=== PATIENT | male | born 1965 | race African-American/Black ===

== ENCOUNTER 2018-11-23 10:00 | Inpatient (IN) | payer MEDICAID, OTHER ==
[~2018-11-23] VITALS: Ht 177.8 cm; Wt 119.3 kg
[2018-11-23] MEDS ORDERED: KEPP250 PO (10:13)
[2018-11-23] MEDS ORDERED: SODIUM CHLORIDE 0.9% 1,000 ML IV ONE (10:23)
[2018-11-23] MEDS ORDERED: MORPHINE SULFATE 4 MG/ML CPJ (NOT FOR IM USE) IV STA (10:23)
[2018-11-23] MEDS ORDERED: ONDANSETRON HCL 4MG/2ML INJ IV STA (10:23)
[2018-11-23] MEDS ORDERED: ONDANSETRON HCL 4MG/2ML INJ IV ONE (10:30)
[2018-11-23] MEDS ORDERED: MORPHINE SULFATE 4 MG/ML CPJ (NOT FOR IM USE) IV ONE (10:30)
[2018-11-23] MEDS ORDERED: TOPA200 MT (10:34)
[2018-11-23] MEDS ORDERED: GABA-529 MT (10:34)
[2018-11-23] MEDS ORDERED: PREG150C PO (10:34)
[2018-11-23 11:29] LABS: BASOPHILS % 0.7 % (0.0-2.0); EOSINOPHILS % 3.6 % (0.0-5.0); HEMATOCRIT. 40.3 % (42.0-52.0); HEMOGLOBIN. 13.9 g/dL (14.0-18.0); LYMPHOCYTES % 23.3 % (20.0-50.0); MEAN CORPUSCULAR HEMOGLOBIN 29.8 pg (28.0-32.0); MEAN CORPUSCULAR VOLUME 86.6 fL (80.0-94.0); MEAN PLATELET VOLUME 8.2 fl (7.4-10.4); NEUTROPHILS % 67.4 % (40.0-76.0); PLATELET 200 x1000/uL (130-400); RED BLOOD CELL COUNT 4.65 mill/uL (4.7-6.1)
[2018-11-23 11:37] LABS: PROTHROMBIN TIME 9.8 sec (9.6-11.0)
[2018-11-23 12:12] LABS: CLARITY URINE CLEAR (CLEAR); COLOR URINE YELLOW (YELLOW); KETONES URINE NEGATIVE (NEGATIVE); LEUKOCYTE ESTERASE URINE NEGATIVE (NEGATIVE); NITRITE URINE NEGATIVE (NEGATIVE); OCCULT BLOOD URINE NEGATIVE (NEGATIVE); PH URINE 5.5 (4.5-8.0); PROTEIN URINE NEGATIVE (NEGATIVE); SPECIFIC GRAVITY URINE 1.039 (1.005-1.030); UROBILINOGEN URINE 0.2 E.U./dL (0.2-1.0)
[2018-11-23 12:20] LABS: CHLORIDE 103 mEq/L (98-107)
[2018-11-23 12:26] LABS: ETHANOL BLOOD < 10 mg/dL
[2018-11-23 12:27] LABS: BETA HYDROXYBUTYRATE 0.2 mMol/L (0.0-0.3)
[2018-11-23 12:41] LABS: *AMPHETAMINES SCREEN URINE NEGATIVE (NEGATIVE); *BARBITURATES SCREEN URINE NEGATIVE (NEGATIVE); *BENZODIAZEPINES SCREEN URINE NEGATIVE (NEGATIVE)
[2018-11-23 12:42] LABS: *COCAINE SCREEN URINE NEGATIVE (NEGATIVE); CANNABINOID URINE SCREEN NEGATIVE (NEGATIVE); METHADONE URINE SCREEN NEGATIVE (NEGATIVE); OPIATES URINE SCREEN NEGATIVE (NEGATIVE); PHENCYCLIDINE URINE SCREEN NEGATIVE (NEGATIVE)
[2018-11-23] MEDS ORDERED: ENALAPRIL 2.5MG/2ML VIAL 2ML IV ONE (13:00)
[2018-11-23] MEDS ORDERED: INSULIN REGULAR (HUMULIN R) 300UNITS/3ML IV ONE (13:00)
[2018-11-23] MEDS ORDERED: ENALAPRIL 1.25MG/ML VIAL 1ML IV SCH (13:45)
[2018-11-23 16:00] VITALS: BP_SYST 133; BP_SYST 137; BP_DIAS 102; BP_DIAS 89
[2018-11-23] MEDS ORDERED: ONDANSETRON HCL 4MG/2ML INJ IV PRN (16:30)
[2018-11-23] MEDS ORDERED: ENOXAPARIN 40MG/0.4ML SYR SUBCUT SCH (16:30)
[2018-11-23] MEDS ORDERED: IPRATROPIUM/ALBUTEROL 0.5-3(2.5)MG/3ML NEB INH PRN (16:30)
[2018-11-23] MEDS ORDERED: CLONIDINE 0.1MG TABLET PO PRN (16:30)
[2018-11-23] MEDS ORDERED: DEXTROSE 50% WATER 50ML SYRINGE IV PRN (16:30)
[2018-11-23] MEDS ORDERED: DOCUSATE SODIUM 100MG CAPSULE PO PRN (16:30)
[2018-11-23] MEDS ORDERED: NITROGLYCERIN 0.4MG TABLET SL SL PRN (16:30)
[2018-11-23] MEDS ORDERED: LORAZEPAM 2MG/ML CPJ IV PRN (16:30)
[2018-11-23] MEDS ORDERED: GUAIFENESIN 200MG/10ML SUGAR FREE UDC PO PRN (16:30)
[2018-11-23] MEDS ORDERED: MAGNESIUM/ALUMINUM HYDROXIDE/SIMETHICONE 30ML UDC PO PRN (16:30)
[2018-11-23] MEDS: ACETAMINOPHEN 325MG TABLET PO PRN ×2 (16:54→21:54)
[2018-11-23 17:18] VITALS: BP 137/89
[2018-11-23] MEDS: BLOOD SUGAR DIAGNOSTIC STRIP TEST SCH ×2 (17:40→21:56)
[2018-11-23] MEDS: INSULIN LISPRO 100 UNITS/ML SUBCUT SCH ×2 (18:10→21:56)
[2018-11-23 20:00] VITALS: BP 138/88
[2018-11-23] MEDS ORDERED: ZOLPIDEM TARTRATE 5MG TABLET PO PRN (21:00)
[2018-11-23] MEDS ORDERED: LEVETIRACETAM 500MG TABLET PO SCH (21:00)
[2018-11-23] MEDS: GABAPENTIN 300MG CAPSULE PO SCH (21:52)
[2018-11-23] MEDS: TOPIRAMATE 100MG TABLET PO SCH (21:52)
[2018-11-23] MEDS: LISINOPRIL 20MG TABLET PO SCH (21:53)
[2018-11-23] MEDS: FAMOTIDINE 20MG TABLET PO SCH (21:53)
[2018-11-23] MEDS: ENOXAPARIN 30MG/0.3ML SYR SUBCUT SCH (21:53)
[2018-11-23] MEDS: METOPROLOL TARTRATE 25MG TABLET PO SCH (21:53)
[2018-11-23] MEDS ORDERED: INSULIN GLARGINE UD 100 UNITS/ML SYR SUBCUT SCH (22:00)
[2018-11-23] MEDS ORDERED: DIPHENHYDRAMINE 25MG CAPSULE PO PRN (22:45)
[2018-11-24] VITALS: BP 130/82
[2018-11-24 04:00] VITALS: BP 152/98
[2018-11-24] MEDS: BLOOD SUGAR DIAGNOSTIC STRIP TEST SCH (05:38)
[2018-11-24] MEDS: GABAPENTIN 300MG CAPSULE PO SCH (05:38)
[2018-11-24 08:00] VITALS: BP 134/97
[2018-11-24] MEDS: METOPROLOL TARTRATE 25MG TABLET PO SCH (08:47)
[2018-11-24] MEDS: FAMOTIDINE 20MG TABLET PO SCH (08:47)
[2018-11-24] MEDS: LISINOPRIL 20MG TABLET PO SCH (08:47)
[2018-11-24] MEDS: TOPIRAMATE 100MG TABLET PO SCH (08:47)
[2018-11-24] MEDS: INSULIN LISPRO 100 UNITS/ML SUBCUT SCH (08:51)
[2018-11-24] MEDS: ENOXAPARIN 30MG/0.3ML SYR SUBCUT SCH (08:55)
[2018-11-26 13:09] LABS: TOPIRAMATE None Detected ug/mL (2.0-25.0)
== END 2018-11-24 12:15 | disposition home or self-care (01) | DRG 347 ==
LOC: ER 10:00 → 7WST 12:18 → EDBEDREQ 12:32 → ENRESERV 13:41 → 7WST 20:12
PROVIDERS: ADMIT Internal Medicine; ATTEND Internal Medicine
DX: M54.2 Cervicalgia (principal); E11.65 Type 2 diabetes mellitus with hyperglycemia; G89.29 Other chronic pain; E44.1 Mild protein-calorie malnutrition; E83.51 Hypocalcemia; I10 Essential (primary) hypertension; Z76.5 Malingerer [conscious simulation]; Z88.8 Allergy status to other drugs, medicaments and biological substances; Z79.899 Other long term (current) drug therapy; Z68.37 Body mass index [BMI] 37.0-37.9, adult
CPT/HCPCS: 36415; 80201; 80305; 80320; 82010; 82962; 83880; 84484; 93005; 93970; 96374; 99285; J1650; J1815; J2060; J2270; J2405; J3490; J7030; Q0163; G0480

== ENCOUNTER 2019-01-01 06:49 | Emergency (ER) | payer MEDICAID ==
[~2019-01-01] VITALS: Ht 193 cm; Wt 116.0 kg
[~2019-01-01 06:49] MED LIST: GABA-529 MT; KEPP250 PO; PREG150C PO; TOPA200 MT
[2019-01-01] MEDS ORDERED: METF-416 MT (07:33)
[2019-01-01] MEDS ORDERED: ACETAMINOPHEN 325MG TABLET PO ONE (10:00)
[2019-01-01] MEDS ORDERED: DEXAMETHASONE 4MG/ML 1ML VIAL IM ONE (10:00)
[2019-01-01] MEDS ORDERED: BACLOFEN 10MG TABLET PO ONE (10:00)
[2019-01-01 10:51] VITALS: BP 145/100
== END 2019-01-01 10:53 | disposition home or self-care (01) ==
LOC: ER 06:49
DX: M75.101 Unspecified rotator cuff tear or rupture of right shoulder, not specified as traumatic (principal); M25.511 Pain in right shoulder; E11.9 Type 2 diabetes mellitus without complications; Z79.899 Other long term (current) drug therapy; Z88.6 Allergy status to analgesic agent; Z88.1 Allergy status to other antibiotic agents; Z88.2 Allergy status to sulfonamides
CPT/HCPCS: 96372; 99283; J1100

== ENCOUNTER 2019-01-04 16:53 | Emergency (ER) | payer MEDICAID ==
[~2019-01-04] VITALS: Ht 193 cm; Wt 116.0 kg
[~2019-01-04 16:53] MED LIST changes: -GABA-529 MT; -KEPP250 PO; +METF-416 MT
[2019-01-04 17:02] VITALS: BP 173/118
== END 2019-01-04 22:00 | disposition left against medical advice (07) ==
LOC: ER 16:53
DX: R68.89 Other general symptoms and signs (principal); Z53.21 Procedure and treatment not carried out due to patient leaving prior to being seen by health care provider

== ENCOUNTER 2019-01-04 23:20 | Emergency (ER) | payer MEDICAID ==
[~2019-01-04] VITALS: Ht 193 cm; Wt 114.0 kg
[2019-01-05] MEDS ORDERED: HYDROCODONE/ACETAMINOPHEN 5/325MG TABLET PO ONE (06:30)
[2019-01-05 07:30] VITALS: BP 138/98
== END 2019-01-05 07:45 | disposition home or self-care (01) ==
LOC: ER 23:20
DX: M25.511 Pain in right shoulder (principal); G89.29 Other chronic pain; M75.101 Unspecified rotator cuff tear or rupture of right shoulder, not specified as traumatic; E11.9 Type 2 diabetes mellitus without complications; I10 Essential (primary) hypertension; Z88.6 Allergy status to analgesic agent; Z88.8 Allergy status to other drugs, medicaments and biological substances
CPT/HCPCS: 99283

== ENCOUNTER 2019-01-10 13:09 | Inpatient (IN) | payer MEDICAID ==
[~2019-01-10] VITALS: Ht 193 cm; Wt 112.1 kg
[2019-01-10] MEDS ORDERED: SODIUM CHLORIDE 0.9% 1,000 ML IV ONE (13:49)
[2019-01-10] MEDS ORDERED: MORPHINE SULFATE 4 MG/ML CPJ (NOT FOR IM USE) IV STA (13:49)
[2019-01-10] MEDS ORDERED: TOPIRAMATE 100MG TABLET PO STA (13:49)
[2019-01-10] MEDS ORDERED: ONDANSETRON HCL 4MG/2ML INJ IV STA (13:49)
[2019-01-10] MEDS ORDERED: GABAPENTIN 300MG CAPSULE PO ONE (14:00)
[2019-01-10 14:19] LABS: CLARITY URINE CLEAR (CLEAR); COLOR URINE YELLOW (YELLOW); KETONES URINE NEGATIVE (NEGATIVE); LEUKOCYTE ESTERASE URINE NEGATIVE (NEGATIVE); NITRITE URINE NEGATIVE (NEGATIVE); OCCULT BLOOD URINE NEGATIVE (NEGATIVE); PROTEIN URINE 1+ (NEGATIVE); SPECIFIC GRAVITY URINE 1.042 (1.005-1.030); UROBILINOGEN URINE 0.2 E.U./dL (0.2-1.0)
[2019-01-10 14:31] LABS: *AMPHETAMINES SCREEN URINE NEGATIVE (NEGATIVE)
[2019-01-10 14:32] LABS: *BARBITURATES SCREEN URINE NEGATIVE (NEGATIVE); *BENZODIAZEPINES SCREEN URINE NEGATIVE (NEGATIVE); *COCAINE SCREEN URINE NEGATIVE (NEGATIVE); METHADONE URINE SCREEN NEGATIVE (NEGATIVE); OPIATES URINE SCREEN NEGATIVE (NEGATIVE); PHENCYCLIDINE URINE SCREEN NEGATIVE (NEGATIVE)
[2019-01-10 14:33] LABS: CANNABINOID URINE SCREEN NEGATIVE (NEGATIVE)
[2019-01-10 15:19] LABS: BASOPHILS % 0.9 % (0.0-2.0); EOSINOPHILS % 1.1 % (0.0-5.0); HEMATOCRIT. 46.6 % (42.0-52.0); HEMOGLOBIN. 16.3 g/dL (14.0-18.0); LYMPHOCYTES % 23.7 % (20.0-50.0); MEAN CORPUSCULAR HEMOGLOBIN 29.3 pg (28.0-32.0); MEAN CORPUSCULAR VOLUME 83.9 fL (80.0-94.0); MEAN PLATELET VOLUME 8.4 fl (7.4-10.4); MONOCYTES % 5.9 % (2.0-8.0); NEUTROPHILS % 68.4 % (40.0-76.0); PLATELET 210 x1000/uL (130-400); RED BLOOD CELL COUNT 5.55 mill/uL (4.7-6.1); RED CELL DISTRIBUTION WIDTH 13.7 % (11.6-14.6)
[2019-01-10 15:22] LABS: CHLORIDE 102 mEq/L (98-107)
[2019-01-10 15:26] LABS: ETHANOL BLOOD < 10 mg/dL
[2019-01-10 15:29] LABS: CREATINE KINASE 110 IU/L (39-308)
[2019-01-10] MEDS ORDERED: HYDROCODONE/ACETAMINOPHEN 5/325MG TABLET PO ONE (16:15)
[2019-01-10 18:00] VITALS: BP 137/111
[2019-01-10 18:04] VITALS: BP 137/111
[2019-01-10] MEDS ORDERED: METF-416 PO (18:28)
[2019-01-10] MEDS ORDERED: TOPA200 PO (18:37)
[2019-01-10] MEDS ORDERED: GABA800T PO (18:37)
[2019-01-10] MEDS ORDERED: ACETAMINOPHEN 325MG TABLET PO PRN (18:45)
[2019-01-10] MEDS ORDERED: LORAZEPAM 2MG/ML CPJ IV PRN (18:45)
[2019-01-10] MEDS ORDERED: ONDANSETRON HCL 4MG/2ML INJ IV PRN (18:45)
[2019-01-10] MEDS ORDERED: DEXTROSE 50% WATER 50ML SYRINGE IV PRN (19:00)
[2019-01-10] MEDS: BLOOD SUGAR DIAGNOSTIC STRIP TEST SCH ×2 (19:19→20:38)
[2019-01-10] MEDS: INSULIN LISPRO 100 UNITS/ML SUBCUT SCH ×2 (19:22→20:37)
[2019-01-10 20:00] VITALS: BP 133/80
[2019-01-10] MEDS ORDERED: MAGNESIUM/ALUMINUM HYDROXIDE/SIMETHICONE 30ML UDC PO PRN (20:00)
[2019-01-10] MEDS ORDERED: CLONIDINE 0.1MG TABLET PO PRN (20:00)
[2019-01-10] MEDS ORDERED: DIPHENHYDRAMINE 50MG/ML VIAL IV PRN (20:00)
[2019-01-10] MEDS ORDERED: DOCUSATE SODIUM 100MG CAPSULE PO PRN (20:00)
[2019-01-10] MEDS ORDERED: IPRATROPIUM/ALBUTEROL 0.5-3(2.5)MG/3ML NEB HHN PRN (20:00)
[2019-01-10] MEDS ORDERED: GUAIFENESIN 200MG/10ML SUGAR FREE UDC PO PRN (20:00)
[2019-01-10 20:42] LABS: PHOSPHORUS 3.8 mg/dL (2.5-4.9)
[2019-01-10] MEDS ORDERED: BLOOD SUGAR DIAGNOSTIC STRIP TEST SCH (21:00)
[2019-01-10] MEDS: ENOXAPARIN 30MG/0.3ML SYR SUBCUT SCH (21:00)
[2019-01-10] MEDS ORDERED: INSULIN LISPRO 100 UNITS/ML SUBCUT SCH (21:00)
[2019-01-10] MEDS: HYDROMORPHONE HCL/PF 2MG/ML CPJ IV PRN (21:09)
[2019-01-11] VITALS: BP 137/89
[2019-01-11] MEDS: HYDROMORPHONE HCL/PF 2MG/ML CPJ IV PRN ×5 (01:27→21:41)
[2019-01-11 04:00] VITALS: BP_SYST 128; BP_SYST 137; BP_DIAS 87; BP_DIAS 89
[2019-01-11] MEDS: BLOOD SUGAR DIAGNOSTIC STRIP TEST SCH ×4 (06:01→20:56)
[2019-01-11 07:22] LABS: BASOPHILS % 0.6 % (0.0-2.0); EOSINOPHILS % 2.2 % (0.0-5.0); HEMATOCRIT. 45.5 % (42.0-52.0); HEMOGLOBIN. 15.6 g/dL (14.0-18.0); LYMPHOCYTES % 33.2 % (20.0-50.0); MEAN CORPUSCULAR VOLUME 84.9 fL (80.0-94.0); MEAN PLATELET VOLUME 8.4 fl (7.4-10.4); MONOCYTES % 7.3 % (2.0-8.0); NEUTROPHILS % 56.7 % (40.0-76.0); PLATELET 207 x1000/uL (130-400); RED BLOOD CELL COUNT 5.36 mill/uL (4.7-6.1); RED CELL DISTRIBUTION WIDTH 13.3 % (11.6-14.6)
[2019-01-11] MEDS: INSULIN LISPRO 100 UNITS/ML SUBCUT SCH ×4 (07:50→21:43)
[2019-01-11] MEDS: METFORMIN HCL 500MG TABLET PO SCH (07:56)
[2019-01-11] MEDS: ENOXAPARIN 30MG/0.3ML SYR SUBCUT SCH (07:56)
[2019-01-11] MEDS: GABAPENTIN 400MG CAPSULE PO SCH (07:57)
[2019-01-11 08:00] VITALS: BP 130/90
[2019-01-11] MEDS ORDERED: TOPIRAMATE 100MG TABLET PO SCH (09:00)
[2019-01-11 10:07] LABS: CHLORIDE 104 mEq/L (98-107)
[2019-01-11 10:33] LABS: HDL CHOLESTEROL 31 mg/dL (40-59)
[2019-01-11 10:34] LABS: LDL CHOLESTEROL 74 mg/dL (5-100)
[2019-01-11] MEDS: TOPIRAMATE 100MG TABLET PO SCH ×2 (10:37→16:40)
[2019-01-11] MEDS: ZONISAMIDE 100MG CAPSULE PO SCH (10:37)
[2019-01-11] MEDS ORDERED: INSULIN LISPRO 100 UNITS/ML SUBCUT SCH (11:40)
[2019-01-11 12:00] VITALS: BP 130/80
[2019-01-11 16:00] VITALS: BP 146/90
[2019-01-11] MEDS: CYCLOBENZAPRINE 10MG TABLET PO SCH ×2 (16:40→21:42)
[2019-01-11 20:00] VITALS: BP 129/86
[2019-01-11] MEDS ORDERED: INSULIN GLARGINE UD 100 UNITS/ML SYR SUBCUT SCH (22:00)
[2019-01-12] VITALS: BP 118/81
[2019-01-12] MEDS: HYDROMORPHONE HCL/PF 2MG/ML CPJ IV PRN ×6 (01:58→23:33)
[2019-01-12 04:00] VITALS: BP 139/89
[2019-01-12] MEDS: CYCLOBENZAPRINE 10MG TABLET PO SCH ×3 (06:04→21:31)
[2019-01-12] MEDS: BLOOD SUGAR DIAGNOSTIC STRIP TEST SCH ×4 (06:20→21:31)
[2019-01-12 08:00] VITALS: BP 114/82
[2019-01-12] MEDS: METFORMIN HCL 500MG TABLET PO SCH ×2 (08:46→18:41)
[2019-01-12] MEDS: GABAPENTIN 400MG CAPSULE PO SCH (08:47)
[2019-01-12] MEDS: ZONISAMIDE 100MG CAPSULE PO SCH (08:47)
[2019-01-12] MEDS: TOPIRAMATE 100MG TABLET PO SCH ×2 (08:47→18:41)
[2019-01-12] MEDS: ENOXAPARIN 30MG/0.3ML SYR SUBCUT SCH ×2 (08:47→21:31)
[2019-01-12] MEDS: INSULIN LISPRO 100 UNITS/ML SUBCUT SCH ×5 (08:55→21:32)
[2019-01-12] MEDS ORDERED: INSULIN GLARGINE UD 100 UNITS/ML SYR SUBCUT SCH (10:00)
[2019-01-12 12:00] VITALS: BP 110/82
[2019-01-12 16:00] VITALS: BP 104/79
[2019-01-12 20:28] VITALS: BP 105/72
[2019-01-12] MEDS ORDERED: ATORVASTATIN CALCIUM 20MG TABLET PO SCH (21:00)
[2019-01-12] MEDS: INSULIN GLARGINE UD 100 UNITS/ML SYR SUBCUT SCH (21:33)
[2019-01-13 00:24] VITALS: BP 114/77
[2019-01-13 04:42] VITALS: BP 110/76
[2019-01-13] MEDS: CYCLOBENZAPRINE 10MG TABLET PO SCH ×3 (05:11→22:12)
[2019-01-13] MEDS: HYDROMORPHONE HCL/PF 2MG/ML CPJ IV PRN ×5 (05:27→22:11)
[2019-01-13] MEDS: BLOOD SUGAR DIAGNOSTIC STRIP TEST SCH ×4 (06:39→21:00)
[2019-01-13 08:00] VITALS: BP 110/77
[2019-01-13] MEDS: METFORMIN HCL 500MG TABLET PO SCH ×2 (08:30→17:39)
[2019-01-13] MEDS: GABAPENTIN 400MG CAPSULE PO SCH (08:30)
[2019-01-13] MEDS: ENOXAPARIN 30MG/0.3ML SYR SUBCUT SCH ×2 (08:31→22:12)
[2019-01-13] MEDS: INSULIN LISPRO 100 UNITS/ML SUBCUT SCH ×7 (08:32→22:15)
[2019-01-13] MEDS: ZONISAMIDE 100MG CAPSULE PO SCH (08:37)
[2019-01-13] MEDS: TOPIRAMATE 100MG TABLET PO SCH ×2 (09:33→17:33)
[2019-01-13] MEDS: INSULIN GLARGINE UD 100 UNITS/ML SYR SUBCUT SCH ×2 (09:34→22:15)
[2019-01-13 11:47] VITALS: BP 110/81
[2019-01-13 16:00] VITALS: BP 100/68
[2019-01-13] MEDS ORDERED: HYDROCODONE/APAP 7.5/325MG 1 TAB TABLET PO PRN (18:30)
[2019-01-13 20:13] VITALS: BP 94/59
[2019-01-14 00:44] VITALS: BP 105/75
[2019-01-14] MEDS: HYDROMORPHONE HCL/PF 2MG/ML CPJ IV PRN ×3 (02:36→11:00)
[2019-01-14 04:00] VITALS: BP 106/80
[2019-01-14] MEDS: CYCLOBENZAPRINE 10MG TABLET PO SCH ×2 (05:25→13:38)
[2019-01-14] MEDS: BLOOD SUGAR DIAGNOSTIC STRIP TEST SCH ×2 (06:44→12:40)
[2019-01-14] MEDS: INSULIN LISPRO 100 UNITS/ML SUBCUT SCH ×4 (07:20→12:44)
[2019-01-14] MEDS ORDERED: GEMFIBROZIL 600MG TABLET PO SCH (07:50)
[2019-01-14 08:00] VITALS: BP 114/79
[2019-01-14] MEDS: ZONISAMIDE 100MG CAPSULE PO SCH (08:12)
[2019-01-14] MEDS: METFORMIN HCL 500MG TABLET PO SCH (08:12)
[2019-01-14] MEDS: ENOXAPARIN 30MG/0.3ML SYR SUBCUT SCH ×2 (08:13→08:28)
[2019-01-14] MEDS: TOPIRAMATE 100MG TABLET PO SCH (08:13)
[2019-01-14] MEDS: GABAPENTIN 400MG CAPSULE PO SCH (08:13)
[2019-01-14] MEDS: INSULIN GLARGINE UD 100 UNITS/ML SYR SUBCUT SCH (10:03)
[2019-01-14 12:00] VITALS: BP 109/69
[2019-01-14 14:03] VITALS: BP 109/69
== END 2019-01-14 15:20 | disposition home or self-care (01) | DRG 53 ==
LOC: ER 13:09 → 6WST 15:08 → EDBEDREQ 15:18 → ENRESERV 16:03 → 6WST 17:51
PROVIDERS: ADMIT Internal Medicine; ATTEND Internal Medicine
PROC: 4A00X4Z Measurement of Central Nervous Electrical Activity, External Approach (ICD-10-PCS; principal; 2019-01-10)
DX: G40.909 Epilepsy, unspecified, not intractable, without status epilepticus (principal); E11.65 Type 2 diabetes mellitus with hyperglycemia; M25.511 Pain in right shoulder; M75.101 Unspecified rotator cuff tear or rupture of right shoulder, not specified as traumatic; W18.2XXA Fall in (into) shower or empty bathtub, initial encounter; Z88.9 Allergy status to unspecified drugs, medicaments and biological substances; G89.29 Other chronic pain; Y93.E1 Activity, personal bathing and showering; Z79.84 Long term (current) use of oral hypoglycemic drugs
CPT/HCPCS: 36415; 70551; 71045; 73030; 73221; 80061; 80305; 80320; 81003; 82550; 82962; 83036; 83735; 84100; 84443; 93306; 93880; 96374; 97162; 97166; 99285; J1170; J1650; J1815; J2270; J2405; J7030; G0480

== ENCOUNTER 2019-02-13 10:25 | Emergency (ER) | payer MEDICAID ==
[~2019-02-13] VITALS: Ht 193 cm; Wt 109.0 kg
[~2019-02-13 10:25] MED LIST changes: +GABA800T PO; -METF-416 MT; +METF-416 PO; -PREG150C PO; -TOPA200 MT; +TOPA200 PO
[2019-02-13] MEDS ORDERED: ACETAMINOPHEN 325MG TABLET PO STA (10:50)
[2019-02-13] MEDS ORDERED: MORPHINE SULFATE 4 MG/ML CPJ (NOT FOR IM USE) IV ONE ×2 (11:00→11:45)
[2019-02-13 12:55] VITALS: BP 160/110
== END 2019-02-13 12:59 | disposition home or self-care (01) ==
LOC: ER 10:25
DX: G89.29 Other chronic pain (principal); M25.511 Pain in right shoulder; F19.10 Other psychoactive substance abuse, uncomplicated; E11.9 Type 2 diabetes mellitus without complications; R56.9 Unspecified convulsions; Z88.6 Allergy status to analgesic agent; Z88.8 Allergy status to other drugs, medicaments and biological substances; Z98.890 Other specified postprocedural states
CPT/HCPCS: 73030; 96374; 96376; 99283; J2270; A4565

== ENCOUNTER 2019-05-15 14:23 | Emergency (ER) | payer MEDICAID ==
[~2019-05-15] VITALS: Ht 193 cm; Wt 110.0 kg
[2019-05-15] MEDS ORDERED: PIPERACILLIN/TAZ 3.375G PREMIX 50 ML IV ONE (20:15)
[2019-05-15] MEDS ORDERED: VANCOMYCIN 1 G PREMIX 200 ML IV SCH (20:15)
[2019-05-15 21:18] LABS: CHLORIDE 98 mEq/L (98-107)
[2019-05-15 21:26] LABS: EOSINOPHILS % 2.2 % (0.0-5.0); HEMATOCRIT. 47.4 % (42.0-52.0); HEMOGLOBIN. 16.3 g/dL (14.0-18.0); LYMPHOCYTES % 29.2 % (20.0-50.0); MEAN CORPUSCULAR HEMOGLOBIN 29.9 pg (28.0-32.0); MEAN CORPUSCULAR VOLUME 86.8 fL (80.0-94.0); MEAN PLATELET VOLUME 8.9 fl (7.4-10.4); MONOCYTES % 5.8 % (2.0-8.0); NEUTROPHILS % 61.8 % (40.0-76.0); PLATELET 224 x1000/uL (130-400); RED BLOOD CELL COUNT 5.46 mill/uL (4.7-6.1)
[2019-05-15] MEDS ORDERED: HYDROCODONE/APAP 7.5/325MG 1 TAB TABLET PO ONE (22:00)
[2019-05-15 23:04] VITALS: BP 154/89
== END 2019-05-15 23:05 | disposition home or self-care (01) ==
LOC: ER 14:23
DX: E11.621 Type 2 diabetes mellitus with foot ulcer (principal); L97.511 Non-pressure chronic ulcer of other part of right foot limited to breakdown of skin; E11.65 Type 2 diabetes mellitus with hyperglycemia; H00.019 Hordeolum externum unspecified eye, unspecified eyelid; R56.9 Unspecified convulsions; Z88.6 Allergy status to analgesic agent; Z88.8 Allergy status to other drugs, medicaments and biological substances
CPT/HCPCS: 36415; 73630; 80053; 85025; 85651; 87040; 96365; 96368; 96375; 99284; J2543; J3370; Z7610

== ENCOUNTER 2019-06-25 13:28 | Emergency (ER) | payer MEDICAID ==
[~2019-06-25] VITALS: Ht 193 cm; Wt 110.0 kg
[2019-06-25] MEDS ORDERED: ONDANSETRON 4MG ODT PO ONE (16:45)
[2019-06-25] MEDS ORDERED: MORPHINE SULFATE 10 MG/ML CPJ IM ONE (16:45)
[2019-06-25 16:55] VITALS: BP 155/108
== END 2019-06-25 17:13 | disposition home or self-care (01) ==
LOC: ER 13:28
DX: G89.29 Other chronic pain (principal); M25.511 Pain in right shoulder; M54.5 Low back pain; M54.12 Radiculopathy, cervical region; I10 Essential (primary) hypertension; E11.9 Type 2 diabetes mellitus without complications; Z88.1 Allergy status to other antibiotic agents; Z88.2 Allergy status to sulfonamides; Z79.899 Other long term (current) drug therapy
CPT/HCPCS: 96372; 99283; J2270; Q0162

== ENCOUNTER 2019-08-02 10:35 | Emergency (ER) | payer MEDICAID ==
[~2019-08-02] VITALS: Ht 190.5 cm; Wt 109.0 kg
[2019-08-02 11:30] VITALS: BP 161/112
[2019-08-02] MEDS ORDERED: KETOROLAC 30MG/ML VIAL IV STA (12:02)
[2019-08-02] MEDS ORDERED: SODIUM CHLORIDE 0.9% 1,000 ML IV ONE (12:02)
[2019-08-02 12:16] LABS: BASOPHILS % 0.6 % (0.0-2.0); EOSINOPHILS % 1.5 % (0.0-5.0); HEMOGLOBIN. 15.7 g/dL (14.0-18.0); LYMPHOCYTES % 20.7 % (20.0-50.0); MEAN CORPUSCULAR HEMOGLOBIN 29.8 pg (28.0-32.0); MEAN PLATELET VOLUME 8.5 fl (7.4-10.4); MONOCYTES % 5.8 % (2.0-8.0); NEUTROPHILS % 71.4 % (40.0-76.0); PLATELET 181 x1000/uL (130-400); RED BLOOD CELL COUNT 5.28 mill/uL (4.7-6.1); RED CELL DISTRIBUTION WIDTH 13.8 % (11.6-14.6)
[2019-08-02 12:22] LABS: CHLORIDE 96 mEq/L (98-107)
[2019-08-02 12:26] LABS: ETHANOL BLOOD < 10 mg/dL
[2019-08-02] MEDS ORDERED: ACETAMINOPHEN 325MG TABLET PO ONE (13:45)
== END 2019-08-03 19:53 | disposition left against medical advice (07) ==
LOC: ER 10:35
DX: M25.511 Pain in right shoulder (principal); E11.9 Type 2 diabetes mellitus without complications; G43.909 Migraine, unspecified, not intractable, without status migrainosus; R45.1 Restlessness and agitation; Z79.84 Long term (current) use of oral hypoglycemic drugs; Z98.890 Other specified postprocedural states; Z88.8 Allergy status to other drugs, medicaments and biological substances; V00.831A Fall from motorized mobility scooter, initial encounter; Y93.89 Activity, other specified; Y92.89 Other specified places as the place of occurrence of the external cause
CPT/HCPCS: 36415; 73030; 80053; 80320; 82962; 85025; 99284; J7030; J1885; G0480

== ENCOUNTER 2019-09-19 00:10 | Inpatient (IN) | payer MEDICAID ==
[~2019-09-19] VITALS: Ht 193 cm; Wt 104.3 kg
[2019-09-19] MEDS ORDERED: ONDANSETRON HCL 4MG/2ML INJ IV STA ×2 (01:02→03:23)
[2019-09-19] MEDS ORDERED: SODIUM CHLORIDE 0.9% 1,000 ML IV ONE ×2 (01:02→02:34)
[2019-09-19] MEDS ORDERED: MORPHINE SULFATE 4 MG/ML CPJ (NOT FOR IM USE) IV STA ×2 (01:02→03:23)
[2019-09-19 02:03] LABS: CHLORIDE 98 mEq/L (98-107)
[2019-09-19 03:18] LABS: CLARITY URINE CLEAR (CLEAR); COLOR URINE YELLOW (YELLOW); KETONES URINE NEGATIVE (NEGATIVE); LEUKOCYTE ESTERASE URINE NEGATIVE (NEGATIVE); NITRITE URINE NEGATIVE (NEGATIVE); OCCULT BLOOD URINE NEGATIVE (NEGATIVE); PROTEIN URINE NEGATIVE (NEGATIVE); UROBILINOGEN URINE 0.2 E.U./dL (0.2-1.0)
[2019-09-19] MEDS ORDERED: IOHEXOL-300 100 ML BOTTLE ONE (03:30)
[2019-09-19 05:06] LABS: BASOPHILS % 0.6 % (0.0-2.0); EOSINOPHILS % 2.1 % (0.0-5.0); HEMATOCRIT. 47.7 % (42.0-52.0); HEMOGLOBIN. 16.7 g/dL (14.0-18.0); LYMPHOCYTES % 32.4 % (20.0-50.0); MEAN CORPUSCULAR HEMOGLOBIN 29.6 pg (28.0-32.0); MEAN CORPUSCULAR VOLUME 84.8 fL (80.0-94.0); MEAN PLATELET VOLUME 8.5 fl (7.4-10.4); MONOCYTES % 6.8 % (2.0-8.0); NEUTROPHILS % 58.1 % (40.0-76.0); PLATELET 211 x1000/uL (130-400); RED BLOOD CELL COUNT 5.63 mill/uL (4.7-6.1); RED CELL DISTRIBUTION WIDTH 13.5 % (11.6-14.6)
[2019-09-19] MEDS ORDERED: NA PHOS,M-B/NA PHOS,DI-BA ENEMA 118ML PR PRN (07:45)
[2019-09-19] MEDS ORDERED: DOCUSATE SODIUM 100MG CAPSULE PO PRN (07:45)
[2019-09-19] MEDS: ENOXAPARIN 40MG/0.4ML SYR SUBCUT SCH (07:45)
[2019-09-19] MEDS ORDERED: HYDROCODONE/ACETAMINOPHEN 10/325MG TABLET PO PRN (07:45)
[2019-09-19] MEDS ORDERED: IPRATROPIUM/ALBUTEROL 0.5-3(2.5)MG/3ML NEB NEB PRN (07:45)
[2019-09-19] MEDS ORDERED: ACETAMINOPHEN 325MG TABLET PO PRN (07:45)
[2019-09-19] MEDS ORDERED: DEXTROSE 50% WATER 50ML SYRINGE IV PRN (07:45)
[2019-09-19] MEDS ORDERED: LORAZEPAM 2MG/ML CPJ IV PRN (07:45)
[2019-09-19] MEDS ORDERED: GUAIFENESIN 200MG/10ML SUGAR FREE UDC PO PRN (07:45)
[2019-09-19] MEDS ORDERED: MORPHINE SULFATE 2 MG/ML CPJ (NOT FOR IM USE) IV PRN (07:45)
[2019-09-19] MEDS ORDERED: DEXT 5%/0.9% NACL 1,000 ML IV ONE (07:45)
[2019-09-19] MEDS ORDERED: MAGNESIUM/ALUMINUM HYDROXIDE/SIMETHICONE 30ML UDC PO PRN (07:45)
[2019-09-19] MEDS ORDERED: DIPHENHYDRAMINE 50MG/ML VIAL IV PRN (07:45)
[2019-09-19] MEDS ORDERED: CLONIDINE 0.1MG TABLET PO PRN (07:45)
[2019-09-19] MEDS ORDERED: HYDRALAZINE 20MG/ML VIAL IV PRN (07:45)
[2019-09-19] MEDS: INSULIN LISPRO 100 UNITS/ML SUBCUT SCH ×4 (08:20→21:00)
[2019-09-19] MEDS ORDERED: ONDANSETRON HCL 4MG/2ML INJ IV ONE (08:30)
[2019-09-19] MEDS ORDERED: MORPHINE SULFATE 4 MG/ML CPJ (NOT FOR IM USE) IV ONE (08:30)
[2019-09-19] MEDS: BLOOD SUGAR DIAGNOSTIC STRIP TEST SCH ×4 (09:27→21:00)
[2019-09-19 12:00] VITALS: BP 135/103
[2019-09-19] MEDS ORDERED: HYDRALAZINE 10 MG in SODIUM CHLORIDE 0.9% 49.5 ML IV PRN (12:15)
[2019-09-19] MEDS ORDERED: CODE30TA2 MT (12:51)
[2019-09-19] MEDS ORDERED: HYDROMORPHONE HCL/PF 2MG/ML CPJ IM PRN ×2 (13:30→19:30)
[2019-09-19] MEDS: ONDANSETRON HCL 4MG/2ML INJ IV PRN ×2 (14:14→22:24)
[2019-09-19] MEDS: SODIUM CHLORIDE 0.9% INJ 3ML FLUSH IVF SCH ×2 (14:54→21:43)
[2019-09-19 16:00] VITALS: BP 121/71
[2019-09-19] MEDS: HYDROMORPHONE HCL/PF 2MG/ML CPJ IV PRN ×2 (16:01→22:11)
[2019-09-19] MEDS ORDERED: HYDROMORPHONE HCL/PF 2MG/ML CPJ IV PRN (19:30)
[2019-09-19 20:00] VITALS: BP 121/96
[2019-09-20] VITALS: BP 120/90
[2019-09-20 04:00] VITALS: BP 96/55
[2019-09-20] MEDS: HYDROMORPHONE HCL/PF 2MG/ML CPJ IV PRN ×3 (06:01→20:37)
[2019-09-20] MEDS: BLOOD SUGAR DIAGNOSTIC STRIP TEST SCH ×4 (06:13→20:29)
[2019-09-20] MEDS: INSULIN LISPRO 100 UNITS/ML SUBCUT SCH ×4 (06:44→20:39)
[2019-09-20 07:24] LABS: BASOPHILS % 0.9 % (0.0-2.0); EOSINOPHILS % 2.3 % (0.0-5.0); HEMATOCRIT. 47.4 % (42.0-52.0); HEMOGLOBIN. 16.9 g/dL (14.0-18.0); LYMPHOCYTES % 24.1 % (20.0-50.0); MEAN CORPUSCULAR HEMOGLOBIN 29.9 pg (28.0-32.0); MEAN CORPUSCULAR VOLUME 84.1 fL (80.0-94.0); MEAN PLATELET VOLUME 8.2 fl (7.4-10.4); MONOCYTES % 6.7 % (2.0-8.0); PLATELET 207 x1000/uL (130-400); RED BLOOD CELL COUNT 5.64 mill/uL (4.7-6.1); RED CELL DISTRIBUTION WIDTH 13.5 % (11.6-14.6)
[2019-09-20 07:29] LABS: CHLORIDE 103 mEq/L (98-107)
[2019-09-20 08:00] VITALS: BP 119/61
[2019-09-20] MEDS: ENOXAPARIN 40MG/0.4ML SYR SUBCUT SCH (08:47)
[2019-09-20 12:00] VITALS: BP 119/88
[2019-09-20] MEDS: SODIUM CHLORIDE 0.9% INJ 3ML FLUSH IVF SCH ×2 (14:17→21:55)
[2019-09-20 16:00] VITALS: BP 117/90
[2019-09-20] MEDS ORDERED: POTASSIUM CHLORIDE 20MEQ TABLET SR PO NR (17:30)
[2019-09-20 20:00] VITALS: BP 112/79
[2019-09-20] MEDS: ONDANSETRON HCL 4MG/2ML INJ IV PRN (20:37)
[2019-09-21] VITALS: BP 123/80
[2019-09-21] MEDS: ONDANSETRON HCL 4MG/2ML INJ IV PRN ×2 (03:59→21:28)
[2019-09-21 04:00] VITALS: BP 132/86
[2019-09-21] MEDS: HYDROMORPHONE HCL/PF 2MG/ML CPJ IV PRN ×4 (04:01→23:28)
[2019-09-21] MEDS: SODIUM CHLORIDE 0.9% INJ 3ML FLUSH IVF SCH ×3 (06:01→22:00)
[2019-09-21] MEDS: BLOOD SUGAR DIAGNOSTIC STRIP TEST SCH ×4 (06:32→21:00)
[2019-09-21 08:00] VITALS: BP 131/95
[2019-09-21] MEDS: ENOXAPARIN 40MG/0.4ML SYR SUBCUT SCH (09:12)
[2019-09-21] MEDS: INSULIN LISPRO 100 UNITS/ML SUBCUT SCH ×4 (09:16→21:50)
[2019-09-21 12:00] VITALS: BP 131/96
[2019-09-21 12:55] LABS: CHLORIDE 103 mEq/L (98-107)
[2019-09-21 13:04] LABS: CREATINE KINASE 108 IU/L (39-308)
[2019-09-21 13:08] LABS: CREATINE KINASE MB FRACTION < 1.0 ng/mL (0.5-3.6)
[2019-09-21 16:00] VITALS: BP 136/97
[2019-09-21 20:00] VITALS: BP 137/83
[2019-09-22 00:13] VITALS: BP 130/90
[2019-09-22] MEDS: ONDANSETRON HCL 4MG/2ML INJ IV PRN (03:33)
[2019-09-22 04:00] VITALS: BP 123/80
[2019-09-22] MEDS: HYDROMORPHONE HCL/PF 2MG/ML CPJ IV PRN (05:39)
[2019-09-22] MEDS: BLOOD SUGAR DIAGNOSTIC STRIP TEST SCH (07:11)
[2019-09-22 08:00] VITALS: BP 121/93
[2019-09-22] MEDS: ENOXAPARIN 40MG/0.4ML SYR SUBCUT SCH (08:18)
[2019-09-22] MEDS: INSULIN LISPRO 100 UNITS/ML SUBCUT SCH (08:20)
[2019-09-22 09:06] LABS: BASOPHILS % 0.5 % (0.0-2.0); EOSINOPHILS % 2.4 % (0.0-5.0); HEMATOCRIT. 43.9 % (42.0-52.0); HEMOGLOBIN. 15.6 g/dL (14.0-18.0); LYMPHOCYTES % 30.2 % (20.0-50.0); MEAN CORPUSCULAR VOLUME 84.7 fL (80.0-94.0); MEAN PLATELET VOLUME 7.8 fl (7.4-10.4); MONOCYTES % 8.9 % (2.0-8.0); PLATELET 195 x1000/uL (130-400); RED BLOOD CELL COUNT 5.19 mill/uL (4.7-6.1); RED CELL DISTRIBUTION WIDTH 13.2 % (11.6-14.6)
[2019-09-22 09:12] LABS: CHLORIDE 104 mEq/L (98-107)
[2019-09-22] MEDS ORDERED: INSULIN GLARGINE UD 100 UNITS/ML SYR SUBCUT SCH (10:00)
[2019-09-22 11:17] VITALS: BP 119/82
== END 2019-09-22 11:55 | disposition home or self-care (01) | DRG 48 ==
LOC: ER 00:10 → 6EST 04:29 → EDBEDREQ 04:36 → ENRESERV 09:49
PROVIDERS: ADMIT Internal Medicine; ATTEND Internal Medicine
DX: E11.43 Type 2 diabetes mellitus with diabetic autonomic (poly)neuropathy (principal); K56.600 Partial intestinal obstruction, unspecified as to cause; K55.9 Vascular disorder of intestine, unspecified; E46 Unspecified protein-calorie malnutrition; E11.65 Type 2 diabetes mellitus with hyperglycemia; E87.1 Hypo-osmolality and hyponatremia; R16.0 Hepatomegaly, not elsewhere classified; K31.84 Gastroparesis; E88.09 Other disorders of plasma-protein metabolism, not elsewhere classified; I10 Essential (primary) hypertension; G40.909 Epilepsy, unspecified, not intractable, without status epilepticus; E87.6 Hypokalemia; N28.1 Cyst of kidney, acquired; N27.0 Small kidney, unilateral; Z88.8 Allergy status to other drugs, medicaments and biological substances; Z79.84 Long term (current) use of oral hypoglycemic drugs; Z79.899 Other long term (current) drug therapy; Z90.49 Acquired absence of other specified parts of digestive tract; Z68.28 Body mass index [BMI] 28.0-28.9, adult
CPT/HCPCS: 36415; 74018; 74177; 76770; 80048; 80053; 81003; 82550; 82553; 82962; 85025; 99285; J1170; J1200; J1650; J1815; J2060; J2270; J2405; J7030; Q9967

== ENCOUNTER 2019-09-26 06:04 | Inpatient (IN) | payer MEDICAID ==
[~2019-09-26] VITALS: Ht 190.5 cm; Wt 99.8 kg
[~2019-09-26 06:04] MED LIST changes: +CODE30TA2 MT
[2019-09-26] MEDS ORDERED: ONDANSETRON HCL 4MG/2ML INJ IV ONE (07:15)
[2019-09-26] MEDS ORDERED: MORPHINE SULFATE 4 MG/ML CPJ (NOT FOR IM USE) IV ONE ×2 (07:15→09:45)
[2019-09-26 07:58] LABS: BASOPHILS % 0.7 % (0.0-2.0); EOSINOPHILS % 2.9 % (0.0-5.0); HEMATOCRIT. 40.8 % (42.0-52.0); HEMOGLOBIN. 14.6 g/dL (14.0-18.0); LYMPHOCYTES % 30.3 % (20.0-50.0); MEAN CORPUSCULAR HEMOGLOBIN 30.3 pg (28.0-32.0); MEAN CORPUSCULAR VOLUME 84.8 fL (80.0-94.0); MEAN PLATELET VOLUME 8.4 fl (7.4-10.4); MONOCYTES % 8.4 % (2.0-8.0); NEUTROPHILS % 57.7 % (40.0-76.0); PLATELET 199 x1000/uL (130-400); RED BLOOD CELL COUNT 4.81 mill/uL (4.7-6.1)
[2019-09-26 08:05] LABS: CHLORIDE 103 mEq/L (98-107)
[2019-09-26 08:06] LABS: INR 0.9; PROTHROMBIN TIME 9.8 sec (9.6-11.0)
[2019-09-26 08:46] LABS: CLARITY URINE CLEAR (CLEAR); COLOR URINE YELLOW (YELLOW); KETONES URINE NEGATIVE (NEGATIVE); LEUKOCYTE ESTERASE URINE NEGATIVE (NEGATIVE); NITRITE URINE NEGATIVE (NEGATIVE); OCCULT BLOOD URINE NEGATIVE (NEGATIVE); PH URINE 5.5 (4.5-8.0); PROTEIN URINE NEGATIVE (NEGATIVE); SPECIFIC GRAVITY URINE 1.041 (1.005-1.030); UROBILINOGEN URINE 0.2 E.U./dL (0.2-1.0)
[2019-09-26] MEDS ORDERED: INSULIN REGULAR (HUMULIN R) 300UNITS/3ML SUBCUT ONE (09:45)
[2019-09-26] MEDS ORDERED: SODIUM CHLORIDE 0.9% 500 ML IV ONE (09:45)
[2019-09-26] MEDS: KETOROLAC 15MG/ML VIAL IV ONE ×2 (10:20→10:25)
[2019-09-26] MEDS ORDERED: IOHEXOL-300 100 ML BOTTLE ONE (10:27)
[2019-09-26] MEDS ORDERED: ACETAMINOPHEN 650MG/20.3ML UDC GT PRN (10:45)
[2019-09-26] MEDS ORDERED: IPRATROPIUM/ALBUTEROL 0.5-3(2.5)MG/3ML NEB HHN PRN (10:45)
[2019-09-26] MEDS ORDERED: CLONIDINE 0.1MG TABLET PO PRN (10:45)
[2019-09-26 10:59] LABS: PHOSPHORUS 3.5 mg/dL (2.5-4.9)
[2019-09-26] MEDS: ENOXAPARIN 40MG/0.4ML SYR SUBCUT SCH (11:23)
[2019-09-26] MEDS: INSULIN GLARGINE UD 100 UNITS/ML SYR SUBCUT SCH ×2 (11:24→22:11)
[2019-09-26] MEDS ORDERED: INSULIN GLARGINE UD 100 UNITS/ML SYR SUBCUT SCH (11:30)
[2019-09-26] MEDS ORDERED: SODIUM CHLORIDE 0.9% 1,000 ML IV SCH (11:30)
[2019-09-26] MEDS: MORPHINE SULFATE 2 MG/ML CPJ (NOT FOR IM USE) IV PRN ×3 (13:32→23:52)
[2019-09-26] MEDS ORDERED: DEXTROSE 50% WATER 50ML SYRINGE IV PRN (20:00)
[2019-09-26] MEDS ORDERED: BLOOD SUGAR DIAGNOSTIC STRIP TEST SCH (22:00)
[2019-09-26] MEDS ORDERED: INSULIN LISPRO 100 UNITS/ML SUBCUT SCH (22:00)
[2019-09-26] MEDS ORDERED: SODIUM CHLORIDE 0.45% 1,000 ML IV ONE (22:00)
[2019-09-26] MEDS: ONDANSETRON HCL 4MG/2ML INJ IV PRN (22:12)
[2019-09-27] MEDS: MORPHINE SULFATE 2 MG/ML CPJ (NOT FOR IM USE) IV PRN ×6 (03:17→23:44)
[2019-09-27] MEDS: ONDANSETRON HCL 4MG/2ML INJ IV PRN ×3 (03:17→23:43)
[2019-09-27] MEDS ORDERED: DEXTROSE 50% WATER 50ML SYRINGE IV PRN (03:45)
[2019-09-27 04:25] VITALS: BP 165/104
[2019-09-27] MEDS: BLOOD SUGAR DIAGNOSTIC STRIP TEST SCH ×4 (06:49→21:13)
[2019-09-27] MEDS: INSULIN LISPRO 100 UNITS/ML SUBCUT SCH ×4 (07:50→21:17)
[2019-09-27 08:00] VITALS: BP 145/99
[2019-09-27] MEDS: DOCUSATE SODIUM 250MG CAPSULE PO SCH ×2 (09:00→17:00)
[2019-09-27] MEDS: ENOXAPARIN 40MG/0.4ML SYR SUBCUT SCH (09:00)
[2019-09-27 11:11] LABS: CHLORIDE 104 mEq/L (98-107)
[2019-09-27 11:16] LABS: LDL CHOLESTEROL 62 mg/dL (5-100)
[2019-09-27 11:19] LABS: HDL CHOLESTEROL 31 mg/dL (40-59)
[2019-09-27 12:00] VITALS: BP 150/90
[2019-09-27 12:00] LABS: BASOPHILS % 0.6 % (0.0-2.0); EOSINOPHILS % 2.8 % (0.0-5.0); HEMATOCRIT. 43.1 % (42.0-52.0); HEMOGLOBIN. 15.5 g/dL (14.0-18.0); LYMPHOCYTES % 28.4 % (20.0-50.0); MEAN CORPUSCULAR HEMOGLOBIN 30.2 pg (28.0-32.0); MEAN CORPUSCULAR VOLUME 83.8 fL (80.0-94.0); MEAN PLATELET VOLUME 8.2 fl (7.4-10.4); MONOCYTES % 6.3 % (2.0-8.0); NEUTROPHILS % 61.9 % (40.0-76.0); PLATELET 208 x1000/uL (130-400); RED BLOOD CELL COUNT 5.14 mill/uL (4.7-6.1)
[2019-09-27 18:21] VITALS: BP 147/114
[2019-09-27 20:00] VITALS: BP 134/92
[2019-09-27] MEDS ORDERED: LACTULOSE 20G/30ML UDC PO SCH (21:00)
[2019-09-27] MEDS ORDERED: INSULIN GLARGINE UD 100 UNITS/ML SYR SUBCUT NR (23:00)
[2019-09-28] VITALS: BP 142/100
[2019-09-28] MEDS: MORPHINE SULFATE 2 MG/ML CPJ (NOT FOR IM USE) IV PRN ×2 (03:54→08:59)
[2019-09-28 04:00] VITALS: BP 138/96
[2019-09-28] MEDS: BLOOD SUGAR DIAGNOSTIC STRIP TEST SCH ×2 (07:21→12:09)
[2019-09-28 08:00] VITALS: BP 135/101
[2019-09-28] MEDS: DOCUSATE SODIUM 250MG CAPSULE PO SCH (08:53)
[2019-09-28] MEDS: INSULIN LISPRO 100 UNITS/ML SUBCUT SCH ×2 (08:55→12:13)
[2019-09-28] MEDS: ENOXAPARIN 40MG/0.4ML SYR SUBCUT SCH (09:00)
[2019-09-28] MEDS ORDERED: INSULIN GLARGINE UD 100 UNITS/ML SYR SUBCUT SCH (10:00)
[2019-09-28 10:44] LABS: BASOPHILS % 0.8 % (0.0-2.0); EOSINOPHILS % 1.1 % (0.0-5.0); HEMATOCRIT. 41.5 % (42.0-52.0); HEMOGLOBIN. 14.6 g/dL (14.0-18.0); LYMPHOCYTES % 22.8 % (20.0-50.0); MEAN CORPUSCULAR HEMOGLOBIN 29.7 pg (28.0-32.0); MEAN CORPUSCULAR VOLUME 84.1 fL (80.0-94.0); MONOCYTES % 7.1 % (2.0-8.0); NEUTROPHILS % 68.2 % (40.0-76.0); PLATELET 191 x1000/uL (130-400); RED BLOOD CELL COUNT 4.94 mill/uL (4.7-6.1)
[2019-09-28 10:49] LABS: CHLORIDE 104 mEq/L (98-107)
[2019-09-28 12:00] VITALS: BP 157/106
[2019-09-28] MEDS: ONDANSETRON HCL 4MG/2ML INJ IV PRN (12:40)
[2019-09-28] MEDS ORDERED: ATOR20TA65 MT (13:54)
[2019-09-28] MEDS ORDERED: INSU100I28 SQ (13:54)
[2019-09-28] MEDS ORDERED: ACET325T52 MT (13:54)
[2019-09-28] MEDS ORDERED: METO-293 MT (13:55)
[2019-09-28] MEDS ORDERED: METOCLOPRAMIDE HCL 10MG/2ML VIAL IV SCH (14:18)
[2019-09-28] MEDS ORDERED: GABA800T PO (14:19)
[2019-09-28] MEDS ORDERED: TOPA200 PO (14:19)
[2019-09-28] MEDS ORDERED: METF-416 PO (14:19)
[2019-09-28 14:34] VITALS: BP 157/106
== END 2019-09-28 15:15 | disposition home or self-care (01) | DRG 48 ==
LOC: ER 06:04 → UNDOADMIN 10:00 → MICUSO 10:00 → ENRESERV 09-27 03:48 → 6WST 09-27 04:33
PROVIDERS: ADMIT Internal Medicine; ATTEND Internal Medicine
DX: E11.43 Type 2 diabetes mellitus with diabetic autonomic (poly)neuropathy (principal); E11.65 Type 2 diabetes mellitus with hyperglycemia; E78.1 Pure hyperglyceridemia; F11.10 Opioid abuse, uncomplicated; G40.909 Epilepsy, unspecified, not intractable, without status epilepticus; K31.84 Gastroparesis; K59.00 Constipation, unspecified; Z90.49 Acquired absence of other specified parts of digestive tract; Z79.899 Other long term (current) drug therapy
CPT/HCPCS: 36415; 74177; 80048; 80053; 80061; 81003; 82962; 83036; 83735; 84100; 84443; 85025; 93970; 99285; J1650; J1815; J1885; J2270; J2405; J7040; Q9967

== ENCOUNTER 2019-10-29 16:40 | Emergency (ER) | payer MEDICAID ==
[~2019-10-29] VITALS: Ht 193 cm; Wt 106.5 kg
[~2019-10-29 16:40] MED LIST changes: +ACET325T52 MT; +ATOR20TA65 MT; +INSU100I28 SQ; +METO-293 MT
[2019-10-29] MEDS ORDERED: SODIUM CHLORIDE 0.9% 1,000 ML IV ONE (18:27)
[2019-10-29] MEDS ORDERED: MORPHINE SULFATE 4 MG/ML CPJ (NOT FOR IM USE) IV STA (18:27)
[2019-10-29] MEDS ORDERED: ONDANSETRON HCL 4MG/2ML INJ IV STA (18:27)
[2019-10-29 19:04] LABS: BASOPHILS % 1.3 % (0.0-2.0); EOSINOPHILS % 0.8 % (0.0-5.0); HEMATOCRIT. 49.2 % (42.0-52.0); HEMOGLOBIN. 17.5 g/dL (14.0-18.0); LYMPHOCYTES % 23.2 % (20.0-50.0); MEAN CORPUSCULAR HEMOGLOBIN 30.4 pg (28.0-32.0); MEAN CORPUSCULAR VOLUME 85.5 fL (80.0-94.0); MEAN PLATELET VOLUME 8.5 fl (7.4-10.4); MONOCYTES % 6.5 % (2.0-8.0); NEUTROPHILS % 68.2 % (40.0-76.0); PLATELET 185 x1000/uL (130-400); RED BLOOD CELL COUNT 5.76 mill/uL (4.7-6.1); RED CELL DISTRIBUTION WIDTH 13.5 % (11.6-14.6)
[2019-10-29 19:09] LABS: CHLORIDE 99 mEq/L (98-107)
[2019-10-29 19:14] LABS: ETHANOL BLOOD < 10 mg/dL
[2019-10-29 20:42] VITALS: BP 161/114
== END 2019-10-29 22:22 | disposition home or self-care (01) ==
LOC: ER 16:49
DX: R10.84 Generalized abdominal pain (principal); E11.9 Type 2 diabetes mellitus without complications; Z98.890 Other specified postprocedural states; Z79.899 Other long term (current) drug therapy; Z88.8 Allergy status to other drugs, medicaments and biological substances
CPT/HCPCS: 36415; 74176; 80053; 80320; 82962; 83690; 85025; 96361; 96374; 96375; 99284; J2270; J2405; J7030; G0480

== ENCOUNTER 2019-12-23 13:07 | Inpatient (IN) | payer MEDICAID ==
[~2019-12-23] VITALS: Ht 190.5 cm; Wt 101.6 kg
[2019-12-23] MEDS ORDERED: ONDANSETRON HCL 4MG/2ML INJ IV STA (13:48)
[2019-12-23] MEDS ORDERED: SODIUM CHLORIDE 0.9% 1,000 ML IV ONE (13:48)
[2019-12-23 14:30] LABS: BASOPHILS % 0.8 % (0.0-2.0); EOSINOPHILS % 4.4 % (0.0-5.0); HEMATOCRIT. 36.8 % (42.0-52.0); HEMOGLOBIN. 12.9 g/dL (14.0-18.0); LYMPHOCYTES % 15.3 % (20.0-50.0); MEAN CORPUSCULAR HEMOGLOBIN 29.3 pg (28.0-32.0); MEAN CORPUSCULAR VOLUME 83.4 fL (80.0-94.0); MEAN PLATELET VOLUME 8.2 fl (7.4-10.4); MONOCYTES % 8.3 % (2.0-8.0); NEUTROPHILS % 71.2 % (40.0-76.0); PLATELET 260 x1000/uL (130-400); RED BLOOD CELL COUNT 4.41 mill/uL (4.7-6.1); RED CELL DISTRIBUTION WIDTH 13.6 % (11.6-14.6)
[2019-12-23 14:34] LABS: CHLORIDE 106 mEq/L (98-107)
[2019-12-23 14:36] LABS: INR 1.1; PROTHROMBIN TIME 11.3 sec (9.6-11.0)
[2019-12-23] MEDS ORDERED: SODIUM CHLORIDE 0.9% 1000ML BAG (SEPSIS BOLUS) IV ONE (16:00)
[2019-12-23] MEDS: MORPHINE SULFATE 4 MG/ML CPJ (NOT FOR IM USE) IV STA ×2 (16:38→18:42)
[2019-12-23] MEDS ORDERED: VANCOMYCIN 1 G PREMIX 200 ML IV SCH (18:30)
[2019-12-23] MEDS ORDERED: PIPERACILLIN/TAZ 3.375G PREMIX 50 ML IV ONE (18:30)
[2019-12-23 19:48] LABS: FOLIC ACID (FOLATE) SERUM 9.9 ng/mL (>5.38)
[2019-12-23 19:54] LABS: CLARITY URINE CLEAR (CLEAR); COLOR URINE YELLOW (YELLOW); KETONES URINE NEGATIVE (NEGATIVE); LEUKOCYTE ESTERASE URINE NEGATIVE (NEGATIVE); NITRITE URINE NEGATIVE (NEGATIVE); OCCULT BLOOD URINE NEGATIVE (NEGATIVE); PROTEIN URINE NEGATIVE (NEGATIVE); SPECIFIC GRAVITY URINE 1.011 (1.005-1.030); UROBILINOGEN URINE 0.2 E.U./dL (0.2-1.0)
[2019-12-23 20:13] LABS: *AMPHETAMINES SCREEN URINE NEGATIVE (NEGATIVE); *BARBITURATES SCREEN URINE NEGATIVE (NEGATIVE); *BENZODIAZEPINES SCREEN URINE NEGATIVE (NEGATIVE); *COCAINE SCREEN URINE NEGATIVE (NEGATIVE); METHADONE URINE SCREEN NEGATIVE (NEGATIVE)
[2019-12-23 20:14] LABS: CANNABINOID URINE SCREEN NEGATIVE (NEGATIVE); OPIATES URINE SCREEN PRESUMTIVE POSITIVE (NEGATIVE); PHENCYCLIDINE URINE SCREEN NEGATIVE (NEGATIVE)
[2019-12-23 20:34] LABS: ETHANOL BLOOD < 10 mg/dL
[2019-12-23 20:36] LABS: TOTAL IRON BINDING CAPACITY 227 ug/dL (250-450)
[2019-12-23] MEDS ORDERED: LORAZEPAM 2MG/ML CPJ IV PRN (21:00)
[2019-12-23] MEDS ORDERED: ACETAMINOPHEN 650MG SUPP PR PRN ×2 (21:00)
[2019-12-23] MEDS ORDERED: NITROGLYCERIN 0.4MG TABLET SL SL PRN (21:00)
[2019-12-23] MEDS ORDERED: DOCUSATE SODIUM 100MG CAPSULE PO PRN (21:00)
[2019-12-23] MEDS ORDERED: IPRATROPIUM/ALBUTEROL 0.5-3(2.5)MG/3ML NEB NEB PRN (21:00)
[2019-12-23] MEDS: ENOXAPARIN 40MG/0.4ML SYR SUBCUT SCH (21:30)
[2019-12-23] MEDS ORDERED: HALOPERIDOL LACTATE 5MG/ML VIAL IM PRN (21:30)
[2019-12-23] MEDS ORDERED: KCL 20MEQ/100ML PREMIX 100 ML IV NR (21:30)
[2019-12-23] MEDS ORDERED: DEXTROSE 50% WATER 50ML SYRINGE IV PRN (21:30)
[2019-12-23] MEDS ORDERED: DEXT 5%/0.9% NACL KCL 20MEQ/L 1,000 ML IV SCH (22:00)
[2019-12-23] MEDS: MORPHINE SULFATE 2 MG/ML CPJ (NOT FOR IM USE) IV PRN (22:20)
[2019-12-23] MEDS: ONDANSETRON HCL 4MG/2ML INJ IV PRN (22:20)
[2019-12-23] MEDS ORDERED: IOHEXOL-300 100 ML BOTTLE ONE (23:28)
[2019-12-24 00:10] VITALS: BP 135/91
[2019-12-24 00:49] VITALS: BP 139/91
[2019-12-24] MEDS ORDERED: LORAZEPAM 2MG/ML CPJ IV PRN (01:00)
[2019-12-24 02:51] VITALS: BP 139/91
[2019-12-24] MEDS: ONDANSETRON HCL 4MG/2ML INJ IV PRN ×2 (02:51→09:31)
[2019-12-24] MEDS: MORPHINE SULFATE 2 MG/ML CPJ (NOT FOR IM USE) IV PRN (02:51)
[2019-12-24] MEDS: ENOXAPARIN 40MG/0.4ML SYR SUBCUT SCH (03:28)
[2019-12-24] MEDS ORDERED: BLOOD SUGAR DIAGNOSTIC STRIP TEST SCH (06:45)
[2019-12-24] MEDS ORDERED: INSULIN LISPRO 100 UNITS/ML SUBCUT SCH (07:15)
[2019-12-24] MEDS ORDERED: PIPERACILLIN/TAZOBACTAM 3.375 G in DEXT 5% WATER 100 ML IV SCH ×3 (09:00)
[2019-12-24] MEDS ORDERED: PANTOPRAZOLE SODIUM 40 MG/VIAL IV SCH (09:00)
[2019-12-24] MEDS ORDERED: DEXT 5%/0.9% NACL KCL 20MEQ/L 1,000 ML IV SCH (11:30)
== END 2019-12-24 10:15 | disposition left against medical advice (07) | DRG 720 ==
LOC: ER 13:07 → EDBEDREQSVC 18:23 → EDBEDREQ 18:24 → 5WST 20:45 → EDBEDREQTM 20:48 → EDBEDREQ 20:48 → ENRESERV 22:36
PROVIDERS: ADMIT Internal Medicine; ATTEND Internal Medicine
DX: A41.9 Sepsis, unspecified organism (principal); K56.609 Unspecified intestinal obstruction, unspecified as to partial versus complete obstruction; E11.9 Type 2 diabetes mellitus without complications; I10 Essential (primary) hypertension; K56.7 Ileus, unspecified; R65.20 Severe sepsis without septic shock; K65.1 Peritoneal abscess; E87.6 Hypokalemia; E44.0 Moderate protein-calorie malnutrition; D63.8 Anemia in other chronic diseases classified elsewhere; G40.909 Epilepsy, unspecified, not intractable, without status epilepticus; G89.29 Other chronic pain; Z79.84 Long term (current) use of oral hypoglycemic drugs; Z88.8 Allergy status to other drugs, medicaments and biological substances; Z68.28 Body mass index [BMI] 28.0-28.9, adult; Z79.899 Other long term (current) drug therapy
CPT/HCPCS: 36415; 71045; 74177; 80053; 80305; 80320; 81003; 82607; 82746; 82962; 83036; 83540; 83550; 83605; 84145; 84484; 85025; 85379; 87070; 93005; 93970; 96374; 99285; C9113; J2270; J2405; J2543; J3370; J3480; J7030; J7060; Q9967; G0480